=== PATIENT | female | born 1975 | race African-American/Black ===

== ENCOUNTER 2016-11-05 12:13 | Emergency (ER) | payer OTHER ==
[2016-11-05 12:34] LABS: INFLUENZA A NEG (NEG)
[2016-11-05 12:35] LABS: INFLUENZA B NEG (NEG)
== END 2016-11-05 12:55 | disposition home or self-care (01) ==
LOC: CFTX 12:13
PROVIDERS: Physician Assistant
DX: B34.9 Viral infection, unspecified (principal); I10 Essential (primary) hypertension
CPT/HCPCS: 87651; 87804; 87880; 99283